=== PATIENT | male | born 1985 | race Caucasian/White ===

== ENCOUNTER 2019-12-10 19:54 | Emergency (ER) | payer SELFPAY ==
[~2019-12-10] VITALS: Ht 165.1 cm; Wt 113.4 kg
[2019-12-10 20:00] VITALS: BP 155/98
--- NOTE | 2019-12-10 20:05 | NUR ---
PT IN TENT WAITING FOR ERMD ASSESSMENT.
--- NOTE | 2019-12-10 20:30 | NUR ---
SWAB COLLECTED AND GIVEN TO LAB.
--- NOTE | 2019-12-10 20:35 | NUR ---
Patient discharged with v/s stable. Written and verbal after care instructions given and explained. Patient verbalized understanding. Ambulatory with steady gait. All questions addressed prior to discharge. Advised to follow up with PMD.
[2019-12-10 20:36] VITALS: BP 155/98
--- NOTE | 2019-12-12 12:40 | NUR ---
COVID RESULTS RECEIVED FROM LAB. RESULT- POSITIVE. COPY OF LAB RESULT PLACED IN INFECTION CONTROL MAILBOX.
== END 2019-12-10 20:35 | disposition home or self-care (01) ==
LOC: EEVIPCON 19:54 → MED 19:54
DX: U07.1 COVID-19 (principal)
CPT/HCPCS: 99283; U0003

== ENCOUNTER 2021-11-21 22:17 | Emergency (ER) | payer SELFPAY ==
[~2021-11-21] VITALS: Ht 167.6 cm; Wt 126.1 kg
[2021-11-21 22:21] VITALS: BP 118/75
--- NOTE | 2021-11-21 23:31 | NUR ---
Patient ambulated to bed 11.
[2021-11-21] MEDS ORDERED: ONDANSETRON 4 MG/2 ML VIAL IVP ONE (23:35)
[2021-11-21] MEDS ORDERED: NACL 0.9% 1,000 ML IV ONE (23:35)
--- NOTE | 2021-11-21 23:40 | NUR ---
LAB AT BEDSIDE
[2021-11-21 23:53] LABS: BASOPHILS # (AUTO) 0.1 K/uL (0.00-0.22); BASOPHILS % (AUTO) 0.6 % (0.0-2.0); EOSINOPHILS % (AUTO) 0.1 % (0.0-4.0); HEMATOCRIT 46.7 % (36-52); HEMOGLOBIN 16.5 g/dL (12.0-18.0); LYMPHOCYTES # (AUTO) 1.8 K/uL (2.0-11.5); LYMPHOCYTES % (AUTO) 17.6 % (20.5-51.1); MEAN CORPUSCULAR HEMOGLOBIN 32 pg (27-31); MEAN CORPUSCULAR HGB CONC 35 g/dL (33-37); MEAN CORPUSCULAR VOLUME 91.4 fL (80-94); MONOCYTES # (AUTO) 0.9 K/uL (0.8-1.0); MONOCYTES % (AUTO) 8.3 % (1.7-9.3); NEUTROPHILS # (AUTO) 7.5 K/uL (1.8-7.7); NEUTROPHILS % (AUTO) 73.4 % (42.2-75.2); PLATELET COUNT (AUTO) 154 K/uL (140-450); RED BLOOD CELL COUNT(AUTO) 5.11 MIL/uL (4.20-6.10); RED CELL DISTRIBUTION WIDTH 13.7 % (11.6-13.7); WHITE BLOOD COUNT (AUTO) 10.2 K/uL (4.8-10.8)
[2021-11-22 00:29] LABS: ALBUMIN 3.7 g/dL (3.4-5.0); ANION GAP 14.5 (8-16); CARBON DIOXIDE 21.7 mmol/L (21-32); CREATININE 0.9 mg/dL (0.6-1.3); POTASSIUM 3.2 mmol/L (3.5-5.1); TOTAL BILIRUBIN 1.2 mg/dL (0.0-1.0)
--- NOTE | 2021-11-22 01:03 | NUR ---
Dr. Randolph examining patient
[2021-11-22] MEDS ORDERED: POTASSIUM CHLORIDE 10 MEQ TABER PO ONE (01:40)
[2021-11-22] MEDS ORDERED: ACET-10509 PO (01:43)
[2021-11-22] MEDS ORDERED: TAM75 PO (01:43)
[2021-11-22] MEDS ORDERED: NAPR-54 PO (01:43)
[2021-11-22] MEDS ORDERED: ONDA-188 PO (01:43)
[2021-11-22 02:18] VITALS: BP 116/81
--- NOTE | 2021-11-22 02:18 | NUR ---
Patient discharged with v/s stable. Written and verbal after care instructions given and explained for Influenza. Patient alert, oriented and verbalized understanding of instructions. Ambulatory with steady gait. All questions addressed prior to discharge. ID band removed. Patient advised to follow up with PMD. Rx of Tylenol, Naproxen, Zofran and Tamiflu given. Patient educated on indication of medication including possible reaction and side effects. Opportunity to ask questions provided and answered.
== END 2021-11-22 02:18 | disposition home or self-care (01) ==
LOC: MED 22:17
DX: J11.1 Influenza due to unidentified influenza virus with other respiratory manifestations (principal); Z20.822 Contact with and (suspected) exposure to COVID-19; R19.7 Diarrhea, unspecified; R11.10 Vomiting, unspecified; Z79.899 Other long term (current) drug therapy; Z79.1 Long term (current) use of non-steroidal anti-inflammatories (NSAID)
CPT/HCPCS: 36415; 80053; 83690; 85025; 87426; 87804; 96361; 96374; 99283; J2405; J7030